=== PATIENT | female | born 1945 | race Caucasian/White ===

== ENCOUNTER 2016-10-07 18:15 | Inpatient (IN) | payer MEDICARE ==
[2016-10-07] MEDS: SODIUM CHLORIDE 0.9% 1,000 ML IV SCH (23:02)
[2016-10-07] MEDS: INSULIN GLARGINE 100 UNIT/ML 10 ML VIAL SQ SCH (23:02)
[2016-10-07] MEDS: ceFAZolin 1,000 MG in DEXTROSE/WATER 1 50ML.BAG IVPB SCH (23:02)
[2016-10-07] MEDS: ASPIRIN 325 MG TAB PO SCH (23:02)
[2016-10-07 23:05] LABS: Glucose,Whole Blood 137 mg/dL (75-99)
[2016-10-08] MEDS: LEVOTHYROXINE 25 MCG TAB PO SCH (06:31)
[2016-10-08 07:42] LABS: Glucose,Whole Blood 109 mg/dL (75-99)
[2016-10-08 07:48] LABS: Anisocytosis Slight; Basophils % (A) 0 %; CH 29.5; CHCM 32.7; Eosinophils # (A) 0.2 k/uL (0-0.7); Eosinophils % (A) 2 %; HCT 33.2 % (34.0-46.0); HDW 3.09; HGB 10.5 gm/dL (11.4-16.0); Luc # (Auto) 0.15; Luc % (Auto) 2; Lymphocytes # (A) 1.4 k/uL (1.0-4.8); Lymphocytes % (A) 18 %; MCH 28.7 pg (25.0-35.0); MCHC 31.7 g/dL (31.0-37.0); MCV 90.6 fL (80.0-100.0); Mean Platelet Volume 7.5; Monocytes # (A) 0.5 k/uL (0-1.0); Monocytes % (A) 6 %; Neutrophils # (A) 5.7 k/uL (1.3-7.7); Neutrophils % (A) 72 %; RBC 3.66 m/uL (3.80-5.40); RDW 16.2 % (11.5-15.5); WBC 7.9 k/uL (3.8-10.6)
[2016-10-08] MEDS: INSULIN LISPRO (humaLOG) 300 UNIT/3 ML VIAL SQ SCH ×4 (08:00→21:13)
[2016-10-08] MEDS: SODIUM CHLORIDE 0.9% 1,000 ML IV SCH ×2 (08:05→16:10)
[2016-10-08] MEDS: ASPIRIN 325 MG TAB PO SCH (08:05)
[2016-10-08] MEDS: PANTOPRAZOLE 40 MG/10 ML VIAL IVP SCH (08:05)
[2016-10-08] MEDS: ceFAZolin 1,000 MG in DEXTROSE/WATER 1 50ML.BAG IVPB SCH ×3 (08:05→23:33)
[2016-10-08] MEDS: HEPARIN SODIUM,PORCINE 5,000 UNIT/ML 1 ML VIAL SQ SCH ×2 (08:05→20:25)
[2016-10-08 08:06] LABS: Anion Gap 8 mmol/L; Blood Urea Nitrogen 35 mg/dL (7-17); Calcium 9.9 mg/dL (8.4-10.2); Carbon Dioxide 23 mmol/L (22-30); Chloride 111 mmol/L (98-107); Glucose 87 mg/dL (74-99); Non-African American GFR(MDRD) >60 (>60 ml/min/1.73 sqM); Potassium 4.3 mmol/L (3.5-5.1); Sodium 142 mmol/L (137-145)
[2016-10-08] MEDS: INSULN ASP PRT/INSULIN ASPART 100 UNIT/ML 10 ML VIAL SQ SCH ×3 (08:06→17:18)
[2016-10-08 11:46] LABS: Glucose,Whole Blood 106 mg/dL (75-99)
[2016-10-08 11:51] LABS: Hemoglobin A1C 6.9 % (4.2-6.1)
[2016-10-08] MEDS: traMADol 50 MG TAB PO PRN ×2 (13:58→20:31)
--- NOTE | 2016-10-08 15:17 | P.HPIM ---
History of Present Illness H&P Date: 10/08/16 Chief Complaint: Bilateral lower extremity edema This is a 70-year-old female who appears to have a history of bilateral chronic venous stasis went into [facility] with the complaints of left lower extremity pain, left upper x-ray pain and lower back pain. Patient with concern for underlying DVT underwent a CT angiogram and bilateral lower x- ray Doppler studies which were negative for DVT. Patient states that she lives alone and is independent of all her ADLs However patient does not like to get out of bed at this time States that she has severe pain in her lower extremity denies having any recent trauma There appears to be no open wounds at this time States that she is able to ambulate with the some help Patient is tearful thereafter starts smiling and gets tearful intermittently denies having any suicidal or homicidal ideations. Review of Systems All systems: negative (Noted in HPI however most of the history is obtained from review of charts.) Past Medical History Past Medical History: Diabetes Mellitus, Hypertension Additional Past Medical History / Comment(s): PVD, hiatal hernia, cataracts History of Any Multi-Drug Resistant Organisms: None Reported Past Surgical History: Cholecystectomy, Hysterectomy Additional Past Surgical History / Comment(s): colonoscopy Past Anesthesia/Blood Transfusion Reactions: No Reported Reaction Past Psychological History: No Psychological Hx Reported Smoking Status: Never smoker - Past Family History Son(s) Family Medical History: No Reported History Mother Family Medical History: No Reported History Medications and Allergies Home Medications Medication Instructions Recorded Confirmed Type Doxycycline Hyclate 100 mg PO BID 10/07/16 10/07/16 History Insulin Glargine [Lantus] 95 units SQ HS 10/07/16 10/07/16 History Insuln Asp Prt/Insulin Aspart 25 units SQ AC-TID 10/07/16 10/07/16 History [NovoLOG MIX 70-30 VIAL] Levothyroxine Sodium [Levoxyl] 25 mcg PO DAILY 10/07/16 10/07/16 History Losartan [Cozaar] 25 mg PO DAILY 10/07/16 10/07/16 History Simvastatin 40 mg PO HS 10/07/16 10/07/16 History traMADol HCl [Ultram] 50 mg PO Q4H PRN 10/07/16 10/07/16 History Allergies Allergy/AdvReac Type Severity Reaction Status Date / Time hydrochlorothiazide Allergy Unknown Unknown Verified 10/08/16 08:00 metformin AdvReac Diarrhea Verified 10/07/16 22:10 nifedipine [From Procardia] AdvReac Confusion Verified 10/07/16 22:10 zinc oxide AdvReac Confusion Verified 10/07/16 22:10 Physical Exam Vitals: Vital Signs Temp Pulse Resp BP Pulse Ox 10/08/16 14:30 98.2 F 85 18 150/60 91 L 10/08/16 07:00 97.0 F L 82 16 168/81 92 L 10/07/16 23:00 97.1 F L 79 16 161/69 94 L 10/07/16 20:10 97.6 F 89 16 173/83 93 L Intake and Output 10/08/16 10/08/16 10/08/16 06:59 14:59 22:59 Other: Voiding Method Incontinent Bedpan Incontinent # Voids 2 GEN appearance alert oriented 3 Neck is supple no JVD Lungs diminished breath sounds no rhonchi wheezing or crackles Heart S1-S2 heard no murmurs appreciated Abdomen soft nontender organomegaly Left upper extremity diffusely tender to palpation difficult to assess his range of motion at the shoulder no associated erythema noted bilateral lower extremity warm to touch bilaterally tender to palpation no open sores Neuro no focal motor or sensory deficits noted Results CBC & Chem 7: 10/08/16 07:00 10/08/16 07:00 Labs: Abnormal Lab Results - Last 24 Hours (Table) 10/07/16 10/08/16 10/08/16 Range/Units 23:03 07:00 07:00 RBC 3.66 L (3.80-5.40) m/uL Hgb 10.5 L (11.4-16.0) gm/dL Hct 33.2 L (34.0-46.0) % RDW 16.2 H (11.5-15.5) % Chloride 111 H (98-107) mmol/L BUN 35 H (7-17) mg/dL POC Glucose (mg/dL) 137 H (75-99) mg/dL Hemoglobin A1c (4.2-6.1) % 10/08/16 10/08/16 10/08/16 Range/Units 07:00 07:37 11:44 RBC (3.80-5.40) m/uL Hgb (11.4-16.0) gm/dL Hct (34.0-46.0) % RDW (11.5-15.5) % Chloride (98-107) mmol/L BUN (7-17) mg/dL POC Glucose (mg/dL) 109 H 106 H (75-99) mg/dL Hemoglobin A1c 6.9 H (4.2-6.1) % Thrombosis Risk Factor Assmnt - Choose All That Apply Any of the Below Risk Factors Present?: Yes Each Factor Represents 1 point: Obesity (BMI >25), Swollen legs (current) Other Risk Factors: No Other congenital or acquired thrombophilia - If yes, enter type in comment: No Thrombosis Risk Factor Assessment Total Risk Factor Score: 2 Thrombosis Risk Factor Assessment Level: Low Risk Assessment and Plan Plan: #1 acute cellulitis of the bilateral lower activities #2 suspect bipolar depression #3 obesity #4 diabetes mellitus type 2 #5 clinical sleep apnea #6 hypertension Plan Continue IV cefazolin Wound care We'll have PT OT evaluation Patient would benefit from a psychiatry evaluation as well Most of the history is obtained from chart review from the previous hospital
[2016-10-08 17:05] LABS: Glucose,Whole Blood 130 mg/dL (75-99)
--- NOTE | 2016-10-08 18:26 | P.CNNES ---
History of Present Illness Consult date: 10/08/16 History of Present Illness: The patient is a 70-year-old left-handed white female who states that she presented to [place] emergency room yesterday after her nurse called EMS. Apparently the patient became wobbly and her legs and experience some vertigo. Dates she thought she might fall but she did not fall. Patient has some cellulitis in both legs and she had a history of chronic venous stasis. The patient underwent bilateral lower extremity Doppler studies which were negative for DVT. The patient was then transferred to [facility] with acute cellulitis of both lower extremities. Neurology is requested to see the patient regarding general weakness. The patient gives a history of chronic back pain. Tramadol at home for pain. Has been no falls. Dates that back pain comes and goes in spurts. She states the back pain came back today this afternoon when and she attributes it to the hospital bed. Not have back pain yesterday. Next Patient is laying in bed and crying from pain in the back. Dates normally she takes her pain medicine and usually takes it away. She also takes aspirin at home for back pain. Patient has history of gout hypertension and diabetes Review of Systems Constitutional: Reports as per HPI Eyes: denies blurred vision, denies pain Cardiovascular: Denies chest pain, Denies shortness of breath Respiratory: Denies cough Gastrointestinal: Denies abdominal pain, Denies diarrhea, Denies nausea, Denies vomiting Musculoskeletal: Denies myalgias Neurological: Reports as per HPI Psychiatric: Denies anxiety, Denies depression Past Medical History Past Medical History: Diabetes Mellitus, Hypertension Additional Past Medical History / Comment(s): PVD, hiatal hernia, cataracts History of Any Multi-Drug Resistant Organisms: None Reported Past Surgical History: Cholecystectomy, Hysterectomy Additional Past Surgical History / Comment(s): colonoscopy Past Anesthesia/Blood Transfusion Reactions: No Reported Reaction Past Psychological History: No Psychological Hx Reported Smoking Status: Never smoker - Past Family History Son(s) Family Medical History: No Reported History Mother Family Medical History: No Reported History Medications and Allergies Home Medications Medication Instructions Recorded Confirmed Type Doxycycline Hyclate 100 mg PO BID 10/07/16 10/07/16 History Insulin Glargine [Lantus] 95 units SQ HS 10/07/16 10/07/16 History Insuln Asp Prt/Insulin Aspart 25 units SQ AC-TID 10/07/16 10/07/16 History [NovoLOG MIX 70-30 VIAL] Levothyroxine Sodium [Levoxyl] 25 mcg PO DAILY 10/07/16 10/07/16 History Losartan [Cozaar] 25 mg PO DAILY 10/07/16 10/07/16 History Simvastatin 40 mg PO HS 10/07/16 10/07/16 History traMADol HCl [Ultram] 50 mg PO Q4H PRN 10/07/16 10/07/16 History Allergies Allergy/AdvReac Type Severity Reaction Status Date / Time hydrochlorothiazide Allergy Unknown Unknown Verified 10/08/16 08:00 metformin AdvReac Diarrhea Verified 10/07/16 22:10 nifedipine [From Procardia] AdvReac Confusion Verified 10/07/16 22:10 zinc oxide AdvReac Confusion Verified 10/07/16 22:10 Physical Examination - Vital Signs Vital Signs: Vital Signs Temp Pulse Resp BP Pulse Ox 10/08/16 14:30 98.2 F 85 18 150/60 91 L 10/08/16 07:00 97.0 F L 82 16 168/81 92 L 10/07/16 23:00 97.1 F L 79 16 161/69 94 L 10/07/16 20:10 97.6 F 89 16 173/83 93 L Intake and Output 10/08/16 10/08/16 10/08/16 06:59 14:59 22:59 Other: Voiding Method Incontinent Bedpan Bedpan Incontinent Incontinent # Voids 2 - Constitutional General appearance: obese - EENT EENT: PERRL, hearing intact, vision intact - Respiratory Respiratory: lungs clear - Cardiovascular Cardiovascular: regular rate, normal S1, normal S2 - Neurologic Cranial nerve examination: PERRL, ptosis (Left eye ptosis since ), face symmetric, tongue midline Speech examination: intact Detailed motor examination: other (The patient has limited range of motion into both shoulders but she is able to lift both arms up against gravity. The patient is obese and has severe swelling in both lower extremities and it is difficult for her to raise her legs up above the bed but she states normally she cannot.) - Musculoskeletal Musculoskeletal: decreased range of motion - Psychiatric Psychiatric: depressed Results - Laboratory Findings CBC and BMP: 10/08/16 07:00 10/08/16 07:00 Abnormal Lab Findings: Abnormal Labs 10/07/16 10/08/16 10/08/16 23:03 07:00 07:00 RBC 3.66 L Hgb 10.5 L Hct 33.2 L RDW 16.2 H Chloride 111 H BUN 35 H POC Glucose (mg/dL) 137 H Hemoglobin A1c 10/08/16 10/08/16 10/08/16 07:00 07:37 11:44 RBC Hgb Hct RDW Chloride BUN POC Glucose (mg/dL) 109 H 106 H Hemoglobin A1c 6.9 H 10/08/16 16:51 RBC Hgb Hct RDW Chloride BUN POC Glucose (mg/dL) 130 H Hemoglobin A1c Assessment and Plan (1) VBI (vertebrobasilar insufficiency) Status: Acute Code(s): G45.0 - VERTEBRO-BASILAR ARTERY SYNDROME (2) Bilateral lower leg cellulitis Status: Acute Code(s): L03.116 - CELLULITIS OF LEFT LOWER LIMB; L03.115 - CELLULITIS OF RIGHT LOWER LIMB (3) Chronic back pain Status: Acute Code(s): M54.9 - DORSALGIA, UNSPECIFIED; G89.29 - OTHER CHRONIC PAIN Plan: The patient is a 69-year-old woman who presented to [facility] yesterday with attack of vertigo associated with wobbliness and weakness in her legs. Lasted for several minutes. She also has a history of chronic back pain with exacerbation since this afternoon. Patient is tearful at is unclear whether she has underlying depression she is having severe exacerbation of back pain. Recommend carotid ultrasound and echocardiogram. Recommend CT brain and PT OT and recommend x-ray lumbar spine if this has not been done. The patient has been started on aspirin 325 mg a day
--- NOTE | 2016-10-08 19:21 | CT ---
EXAMINATION TYPE: CT brain wo con DATE OF EXAM: 10/08/2016 COMPARISON: NONE HISTORY: Vertigo and bilateral lower extremity weakness. CT DLP: 1055.00 mGycm Automated exposure control for dose reduction was used. FINDINGS: There is mild cerebral cortical atrophy. There is no mass effect nor midline shift. There is no sign of intracranial hemorrhage. The calvarium is intact. IMPRESSION: NEGATIVE UNENHANCED HEAD CT SCAN.
--- NOTE | 2016-10-08 19:26 | XR ---
EXAMINATION TYPE: XR lumbar spine 2 or 3V DATE OF EXAM: 10/08/2016 COMPARISON: NONE HISTORY: Back pain TECHNIQUE: 3 views FINDINGS: Vertebra have normal alignment. Exam is limited by patient size. I see no compression fract ure. Disc spaces are fairly normal. There is mild anterior spurring at L2-3. Sacroiliac joints are gr ossly intact. IMPRESSION: Mild spurring. Otherwise negative exam. Limited exam.
[2016-10-08 21:10] LABS: Glucose,Whole Blood 102 mg/dL (75-99)
[2016-10-08] MEDS: INSULIN GLARGINE 100 UNIT/ML 10 ML VIAL SQ SCH (22:19)
[2016-10-09] MEDS: traMADol 50 MG TAB PO PRN ×5 (01:16→20:37)
[2016-10-09 02:21] LABS: Glucose,Whole Blood 136 mg/dL (75-99)
[2016-10-09 05:36] LABS: % Iron Saturation 17.8 % (20-50)
[2016-10-09] MEDS: SODIUM CHLORIDE 0.9% 1,000 ML IV SCH ×2 (05:48→15:24)
[2016-10-09] MEDS: LEVOTHYROXINE 25 MCG TAB PO SCH (06:34)
[2016-10-09 07:18] LABS: Glucose,Whole Blood 130 mg/dL (75-99)
--- NOTE | 2016-10-09 07:49 | US ---
EXAMINATION TYPE: US carotid duplex BILAT DATE OF EXAM: 10/08/2016 COMPARISON: NONE CLINICAL HISTORY: VBI. EXAM MEASUREMENTS: RIGHT: Peak Systolic Velocity (PSV) cm/sec ----- Right CCA: 96.9 ----- Right ICA: 124.2 ----- Right ECA: 175.2 ICA/CCA ratio: 1.3 RIGHT: End Diastole cm/sec ----- Right CCA: 14.1 ----- Right ICA: 25.7 ----- Right ECA: 29.4 LEFT: Peak Systolic Velocity (PSV) cm/sec ----- Left CCA: 90.3 ----- Left ICA: 106.1 ----- Left ECA: 149.4 ICA/CCA ratio: 1.2 LEFT: End Diastole cm/sec ----- Left CCA: 15.5 ----- Left ICA: 21.5 ----- Left ECA: 19.5 VERTEBRALS (direction of flow): Right Vertebral: Antegrade Left Vertebral: Antegrade Exam limited due to patients very labored breathing and neck pain. Unable to hold breath for very parker g. No significant stenosis visualized IMPRESSION: There is antegrade flow in the vertebral arteries. The images and measurements suggest 2 0% stenosis in both internal carotid arteries. There is slight elevated external carotid artery veloc ity that suggests 50-70% stenosis.. Criteria for Assigning % of Stenosis / Diameter reduction (Estimation based on the indirect measurements of the internal carotid artery velocities (ICA PSV). 1. Normal (no stenosis)=ICA PSV < 125 cm/s: ratio < 2.0: ICA EDV<40 cm/s. 2. Less than 50% stenosis=ICA PSV < 125 cm/s: ratio < 2.0: ICA EDV<40 cm/s. 3. 50 to 69% stenosis=ICA PSV of 125 to 230 cm/s: ration 2.0 ? 4.0: ICA EDV 40-100 cm/s. 4. Greater than 70% stenosis to near occlusion= ICA PSV > 230 cm/s: ratio > 4.0: ICA EDV > 100 cm/s. 5. Near occlusion= ICA PSV velocities may be low or undetectable: variable ratio and ICA EDV. 6. Total occlusion=unable to detect flow.
[2016-10-09] MEDS: INSULIN LISPRO (humaLOG) 300 UNIT/3 ML VIAL SQ SCH ×4 (08:02→21:27)
[2016-10-09] MEDS: HEPARIN SODIUM,PORCINE 5,000 UNIT/ML 1 ML VIAL SQ SCH ×2 (08:06→20:31)
[2016-10-09] MEDS: PANTOPRAZOLE 40 MG/10 ML VIAL IVP SCH (08:06)
[2016-10-09] MEDS: ceFAZolin 1,000 MG in DEXTROSE/WATER 1 50ML.BAG IVPB SCH ×3 (08:06→23:26)
[2016-10-09] MEDS: ASPIRIN 325 MG TAB PO SCH (08:06)
[2016-10-09] MEDS: INSULN ASP PRT/INSULIN ASPART 100 UNIT/ML 10 ML VIAL SQ SCH ×3 (08:06→17:45)
[2016-10-09 12:04] LABS: Glucose,Whole Blood 115 mg/dL (75-99)
--- NOTE | 2016-10-09 15:49 | P.PN ---
Subjective This is a 70-year-old female who appears to have a history of bilateral chronic venous stasis went into [facility] with the complaints of left lower extremity pain, left upper x-ray pain and lower back pain. Patient with concern for underlying DVT underwent a CT angiogram and bilateral lower x- ray Doppler studies which were negative for DVT. Patient states that she lives alone and is independent of all her ADLs However patient does not like to get out of bed at this time States that she has severe pain in her lower extremity denies having any recent trauma There appears to be no open wounds at this time States that she is able to ambulate with the some help Patient is tearful thereafter starts smiling and gets tearful intermittently denies having any suicidal or homicidal ideations. No new changes her graft states that she is had much more difficulty with any ambulation Quite a significant amount of help GEN appearance alert oriented 3 Neck is supple no JVD Lungs diminished breath sounds no rhonchi wheezing or crackles Heart S1-S2 heard no murmurs appreciated Abdomen soft nontender organomegaly Left upper extremity diffusely tender to palpation difficult to assess his range of motion at the shoulder no associated erythema noted bilateral lower extremity warm to touch bilaterally tender to palpation no open sores Neuro no focal motor or sensory deficits noted Objective - Vital Signs Vital signs: Vital Signs Temp 98.2 F 10/09/16 15:00 Pulse 86 10/09/16 15:00 Resp 18 10/09/16 15:00 BP 153/86 10/09/16 15:00 Pulse Ox 95 10/09/16 15:00 Intake & Output 10/08/16 10/09/16 10/09/16 18:59 06:59 18:59 Intake Total 1200 Balance 1200 Intake: Oral 1200 Other: Voiding Method Bedpan Bedpan Incontinent # Voids 2 3 4 - Labs CBC & Chem 7: 10/08/16 07:00 10/08/16 07:00 Labs: Abnormal Lab Results - Last 24 Hours (Table) 10/08/16 10/08/16 10/08/16 Range/Units 07:00 16:51 20:50 POC Glucose (mg/dL) 130 H 102 H (75-99) mg/dL % Saturation 17.8 L (20-50) % 08/19/17 08/19/17 08/19/17 Range/Units 02:08 07:16 12:02 POC Glucose (mg/dL) 136 H 130 H 115 H (75-99) mg/dL % Saturation (20-50) % Assessment and Plan Plan: #1 acute cellulitis of the bilateral lower activities #2 suspect bipolar depression #3 obesity #4 diabetes mellitus type 2 #5 clinical sleep apnea #6 hypertension Plan Continue IV cefazolin Wound care We'll have PT OT evaluation Patient would benefit from a psychiatry evaluation as well Most of the history is obtained from chart review from the previous hospital
[2016-10-09 17:12] LABS: Glucose,Whole Blood 146 mg/dL (75-99)
[2016-10-09 21:19] LABS: Glucose,Whole Blood 137 mg/dL (75-99)
[2016-10-09] MEDS: INSULIN GLARGINE 100 UNIT/ML 10 ML VIAL SQ SCH (21:28)
[2016-10-10] MEDS: traMADol 50 MG TAB PO PRN ×4 (01:05→20:04)
[2016-10-10] MEDS: SODIUM CHLORIDE 0.9% 1,000 ML IV SCH ×3 (01:08→20:05)
[2016-10-10] MEDS: LEVOTHYROXINE 25 MCG TAB PO SCH (06:36)
[2016-10-10 07:41] LABS: Glucose,Whole Blood 158 mg/dL (75-99)
[2016-10-10] MEDS: ceFAZolin 1,000 MG in DEXTROSE/WATER 1 50ML.BAG IVPB SCH ×3 (07:54→23:44)
[2016-10-10] MEDS: ASPIRIN 325 MG TAB PO SCH (07:54)
[2016-10-10] MEDS: HEPARIN SODIUM,PORCINE 5,000 UNIT/ML 1 ML VIAL SQ SCH ×2 (07:54→21:01)
[2016-10-10] MEDS: PANTOPRAZOLE 40 MG/10 ML VIAL IVP SCH (07:54)
[2016-10-10] MEDS: INSULN ASP PRT/INSULIN ASPART 100 UNIT/ML 10 ML VIAL SQ SCH ×3 (07:55→17:27)
[2016-10-10] MEDS: INSULIN LISPRO (humaLOG) 300 UNIT/3 ML VIAL SQ SCH ×4 (07:55→21:01)
--- NOTE | 2016-10-10 11:24 | ECHOF ---
Referral Reason:VBI MEASUREMENTS -------- HEIGHT: 167.6 cm WEIGHT: 123.4 kg BP: 162/65 RVIDd: 3.1 cm (< 3.3) IVSd: 1.5 cm (0.6 - 1.1) LVIDd: 5.0 cm (3.9 - 5.3) LVPWd: 1.5 cm (0.6 - 1.1) IVSs: 1.9 cm LVIDs: 3.6 cm LVPWs: 1.8 cm LAESV Index (A-L): 28.65 ml/m Ao Diam: 3.2 cm (2.0 - 3.7) AV Cusp: 1.5 cm (1.5 - 2.6) LA Diam: 4.9 cm (2.7 - 3.8) MV EXCURSION: 18.547 mm (> 18.000) MV EF SLOPE: 79 mm/s (70 - 150) EPSS: 0.5 cm MV E Dheeraj: 1.03 m/s MV DecT: 237 ms MV A Dheeraj: 0.87 m/s MV E/A Ratio: 1.19 AV maxP.18 mmHg AV meanP.39 mmHg RAP: 5.00 mmHg RVSP: 13.95 mmHg FINDINGS -------- Sinus rhythm. This was a technically adequate study. There is moderate concentric left ventricular hypertrophy. Overall left ventricular systolic function is normal with, an EF between 55 - 60 %. The right ventricle is normal in size and function. LA is midly dilated 29-33ml/m2. The right atrium is normal in size. Aortic valve is trileaflet and is mildly thickened. There is no evidence of aortic regurgitation. Mild aortic stenosis with peak/mean pressure gradient of 23.18mmHg / 14.39mmHg , the aortic valve area by continuity equation is 1.5cm. The mitral valve leaflets are mildly thickened. There is trace to mild mitral regurgitation. Trace tricuspid regurgitation present. There is no evidence of pulmonary hypertension. The right ventricular systolic pressure, as measured by Doppler, is 13.95mmHg. Pulmonic valve appears structurally normal. The aortic root, ascending aorta and aortic arch are normal. The inferior vena cava is mildly dilated. The pericardium is normal. There is no pericardial effusion. CONCLUSIONS -------- 1. Sinus rhythm. 2. Trace tricuspid regurgitation present. 3. There is no evidence of pulmonary hypertension. 4. The right ventricular systolic pressure, as measured by Doppler, is 13.95mmHg. 5. The inferior vena cava is mildly dilated. 6. There is no pericardial effusion. 7. This was a technically adequate study. 8. There is moderate concentric left ventricular hypertrophy. 9. Overall left ventricular systolic function is normal with, an EF between 55 - 60 %. 10. LA is midly dilated 29-33ml/m2. 11. Aortic valve is trileaflet and is mildly thickened. 12. Mild aortic stenosis with peak/mean pressure gradient of 23.18mmHg / 14.39mmHg , the aortic valve area by continuity equation is 1.5cm. 13. The mitral valve leaflets are mildly thickened. 14. There is trace to mild mitral regurgitation. PROM BURN OFF OPERATOR: Espinoza Guzman RDCS
[2016-10-10 11:40] LABS: Glucose,Whole Blood 168 mg/dL (75-99)
[2016-10-10 16:53] LABS: Glucose,Whole Blood 169 mg/dL (75-99)
--- NOTE | 2016-10-10 19:47 | P.PN ---
Subjective This is a 70-year-old female who appears to have a history of bilateral chronic venous stasis went into [facility] with the complaints of left lower extremity pain, left upper x-ray pain and lower back pain. Patient with concern for underlying DVT underwent a CT angiogram and bilateral lower x- ray Doppler studies which were negative for DVT. Patient states that she lives alone and is independent of all her ADLs However patient does not like to get out of bed at this time States that she has severe pain in her lower extremity denies having any recent trauma There appears to be no open wounds at this time States that she is able to ambulate with the some help Patient is tearful thereafter starts smiling and gets tearful intermittently denies having any suicidal or homicidal ideations. No new changes her graft states that she is had much more difficulty with any ambulation Quite a significant amount of help 10/10/16 no new overnight events pt continue to be tearful no fevers, chills, n/v, diarrhea GEN appearance alert oriented 3 Neck is supple no JVD Lungs diminished breath sounds no rhonchi wheezing or crackles Heart S1-S2 heard no murmurs appreciated Abdomen soft nontender organomegaly Left upper extremity diffusely tender to palpation difficult to assess his range of motion at the shoulder no associated erythema noted bilateral lower extremity warm to touch bilaterally tender to palpation no open sores, improved significantly Neuro no focal motor or sensory deficits noted Objective - Vital Signs Vital signs: Vital Signs Temp 98.5 F 10/10/16 14:41 Pulse 86 10/10/16 14:41 Resp 16 10/10/16 14:41 BP 176/78 10/10/16 14:41 Pulse Ox 94 L 10/10/16 14:41 Intake & Output 10/10/16 10/10/16 10/11/16 06:59 18:59 06:59 Intake Total 600 Balance 600 Intake: Oral 600 Other: Voiding Method Bedpan # Voids 1 1 - Labs CBC & Chem 7: 10/08/16 07:00 10/08/16 07:00 Labs: Abnormal Lab Results - Last 24 Hours (Table) 10/09/16 10/10/16 10/10/16 Range/Units 21:17 07:27 11:36 POC Glucose (mg/dL) 137 H 158 H 168 H (75-99) mg/dL 10/10/16 Range/Units 16:50 POC Glucose (mg/dL) 169 H (75-99) mg/dL Assessment and Plan Plan: #1 acute cellulitis of the bilateral lower activities #2 suspect bipolar depression #3 obesity #4 diabetes mellitus type 2 #5 clinical sleep apnea #6 hypertension Plan Continue IV cefazolin Wound care improved dc to [facility] We'll have PT OT evaluation Patient would benefit from a psychiatry evaluation as well
[2016-10-10 20:57] LABS: Glucose,Whole Blood 176 mg/dL (75-99)
[2016-10-10] MEDS: INSULIN GLARGINE 100 UNIT/ML 10 ML VIAL SQ SCH (21:01)
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
[2016-10-11] MEDS: LEVOTHYROXINE 25 MCG TAB PO SCH (07:17)
[2016-10-11] MEDS: SODIUM CHLORIDE 0.9% 1,000 ML IV SCH (07:17)
[2016-10-11 07:24] LABS: Glucose,Whole Blood 132 mg/dL (75-99)
[2016-10-11] MEDS: PANTOPRAZOLE 40 MG/10 ML VIAL IVP SCH (07:27)
[2016-10-11] MEDS: HEPARIN SODIUM,PORCINE 5,000 UNIT/ML 1 ML VIAL SQ SCH (07:27)
[2016-10-11] MEDS: ASPIRIN 325 MG TAB PO SCH (07:27)
[2016-10-11] MEDS: ceFAZolin 1,000 MG in DEXTROSE/WATER 1 50ML.BAG IVPB SCH (07:27)
[2016-10-11] MEDS: INSULIN LISPRO (humaLOG) 300 UNIT/3 ML VIAL SQ SCH ×2 (07:28→12:14)
[2016-10-11] MEDS: INSULN ASP PRT/INSULIN ASPART 100 UNIT/ML 10 ML VIAL SQ SCH ×2 (07:28→12:14)
[2016-10-11 07:39] VITALS: BP 164/91; PULSE 89; RESP 22; TEMP 98.9
--- NOTE | 2016-10-11 11:49 | P.DS ---
Providers Date of admission: 10/07/16 20:18 Expected date of discharge: 10/11/16 Attending physician: Paul Alan Consults: 10/07/16 22:15 Consult Physician Routine Consulting Provider: Donna Gómez Consult Reason/Comments: generalized weakness, left sided weakness Do you want consulting provider notified?: Yes 10/08/16 15:30 Consult Physician Urgent Consulting Provider: Miguelito Patrick Consult Reason/Comments: Bi polar depression Do you want consulting provider notified?: Yes 10/08/16 17:01 Consult Physician Urgent Consulting Provider: Donna Gómez Consult Reason/Comments: Left side weakness Do you want consulting provider notified?: Yes Primary care physician: Stated None Dr. Cardenas Hospital Course: Final Diagnoses: #1 acute cellulitis of the bilateral lower activities #2 suspect bipolar depression #3 obesity #4 diabetes mellitus type 2 #5 clinical sleep apnea #6 hypertension Hospital course:This is a 70-year-old female who appears to have a history of bilateral chronic venous stasis went into [facility] with the complaints of left lower extremity pain, left upper x-ray pain and lower back pain. Patient with concern for underlying DVT underwent a CT angiogram and bilateral lower x-ray Doppler studies which were negative for DVT. Statin placed on hold. Treated with IV antibiotics. Evaluated by psychiatry with no psychotropic medications recommended at this time. Evaluated by neurology, aspirin added to med regime. Significant clinical improvement. Cleared by all consults for discharge. Patient is being discharged to [facility] in a stable condition with guarded prognosis. The impression and plan of care has been dictated as directed as a scribe. : I performed a H&P examination of this patient and discussed the same with the dictator. I agree with the dictator's note. Any additional findings/opinions/ etc. will be noted. Patient Condition at Discharge: Stable Plan - Discharge Summary New Discharge Prescriptions: New SILVER sulfADIAZINE CREAM [Silvadene Cream] 1 applic TOPICAL DAILY dose Cefuroxime [Ceftin] 250 mg PO BID #14 tablet INSULIN LISPRO (HumaLOG) [humaLOG] 0 unit SQ ACHS #1 vial Pantoprazole Sodium [Protonix] 40 mg PO DAILY #30 tablet. Aspirin 325 mg PO DAILY tab No Action Losartan [Cozaar] 25 mg PO DAILY traMADol HCl [Ultram] 50 mg PO Q4H PRN PRN Reason: Pain Levothyroxine Sodium [Levoxyl] 25 mcg PO DAILY Insuln Asp Prt/Insulin Aspart [NovoLOG MIX 70-30 VIAL] 25 units SQ AC-TID Insulin Glargine [Lantus] 95 units SQ HS Discharge Medication List Insulin Glargine [Lantus] 95 units SQ HS 10/07/16 [History] Insuln Asp Prt/Insulin Aspart [NovoLOG MIX 70-30 VIAL] 25 units SQ AC-TID [History] Levothyroxine Sodium [Levoxyl] 25 mcg PO DAILY 10/07/16 [History] Losartan [Cozaar] 25 mg PO DAILY 10/07/16 [History] traMADol HCl [Ultram] 50 mg PO Q4H PRN 10/07/16 [History] Aspirin 325 mg PO DAILY tab 10/11/16 [Rx] Cefuroxime [Ceftin] 250 mg PO BID #14 tablet 10/11/16 [Rx] INSULIN LISPRO (HumaLOG) [humaLOG] 0 unit SQ ACHS #1 vial 10/11/16 [Rx] Pantoprazole Sodium [Protonix] 40 mg PO DAILY #30 tablet. 10/11/16 [Rx] SILVER sulfADIAZINE CREAM [Silvadene Cream] 1 applic TOPICAL DAILY dose [Rx] Follow up Appointment(s)/Referral(s): [facility], Psychiatry [Other] - 1 Week Morales Cardenas MD [REFERRING] - 3 Days Ashanti Gómez MD [STAFF PHYSICIAN] - 2 Weeks Patient Instructions/Handouts: Cellulitis (DC) Activity/Diet/Wound Care/Special Instructions: Cardiac, diabetic diet bilateral eden wraps daily activity as tolerated. statin on hold r/t compaints of muscle weakness and pain
[2016-10-11 12:27] LABS: Glucose,Whole Blood 162 mg/dL (75-99)
[2016-10-12] MEDS ORDERED: PANTOPRAZOLE 40 MG TABLET PO SCH (07:30)
== END 2016-10-11 14:40 | DRG 603 ==
LOC: 4MS4W 20:18
PROVIDERS: ADMIT Hospitalist; ATTEND Hospitalist
DX: L03.116 Cellulitis of left lower limb (principal); E11.51 Type 2 diabetes mellitus with diabetic peripheral angiopathy without gangrene; G45.0 Vertebro-basilar artery syndrome; I10 Essential (primary) hypertension; L03.115 Cellulitis of right lower limb; E66.9 Obesity, unspecified; G47.30 Sleep apnea, unspecified; M10.9 Gout, unspecified; R32 Unspecified urinary incontinence; R53.1 Weakness; H02.402 Unspecified ptosis of left eyelid; G89.29 Other chronic pain; I87.8 Other specified disorders of veins; Z79.899 Other long term (current) drug therapy; Z79.4 Long term (current) use of insulin; Z88.8 Allergy status to other drugs, medicaments and biological substances; Z87.19 Personal history of other diseases of the digestive system; Z86.69 Personal history of other diseases of the nervous system and sense organs; Z90.49 Acquired absence of other specified parts of digestive tract; Z90.79 Acquired absence of other genital organ(s)
CPT/HCPCS: 70450; 72100; 80048; 82728; 83036; 83540; 83550; 84443; 85025; 93306; 93880